=== PATIENT | male | born 2000 | race Caucasian/White ===

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

== ENCOUNTER 2021-11-18 00:41 | Emergency (ER) | payer OTHER ==
[2021-11-18 03:18] VITALS: BP 116/78; PULSE 82; TEMP 97.6; BMI 21.2
== END 2021-11-18 05:54 | disposition home or self-care (01) ==
LOC: JER 00:41
DX: R06.00 Dyspnea, unspecified (principal)
CPT/HCPCS: 71046-TC-FY; 93005; 93010; 99283-25